=== PATIENT | female | born 1995 | race African-American/Black ===

== ENCOUNTER 2025-06-04 07:20 | Emergency (ER) | payer BC | END 2025-06-04 08:32 | disposition home or self-care (01) | LOC: ERS 07:20 | DX: S93.402A Sprain of unspecified ligament of left ankle, initial encounter (principal); X50.1XXA Overexertion from prolonged static or awkward postures, initial encounter | CPT/HCPCS: 99283 ==

== ENCOUNTER 2025-06-29 06:10 | Emergency (ER) | payer BC | END 2025-06-29 07:23 | LOC: ERS 06:10 | DX: Z53.21 Procedure and treatment not carried out due to patient leaving prior to being seen by health care provider (principal) | CPT/HCPCS: 87428 ==